=== PATIENT | male | born 1990 ===

== ENCOUNTER 2017-06-05 13:34 | Emergency (ER) | payer OTHER ==
[2017-06-05 13:43] VITALS: RESP 18; O2SAT 99
[2017-06-05 13:44] VITALS: BMI 33.9
--- NOTE | 2017-06-05 13:56 | ED PDOC ---
HPI: General Adult Time Seen by Provider: 06/05/17 13:41 Chief Complaint (Nursing): Trauma Chief Complaint (Provider): Trauma History Per: Patient History/Exam Limitations: no limitations Onset/Duration Of Symptoms: Mins Current Symptoms Are (Timing): Still Present Additional Complaint(s): 26 y/o male presents to the emergency department with a complaint of a headache and momentary loss of consciousness after being obstructed by an elbow to the bridge of his nose and head by another playing trying to catch the same ball while playing baseball prior to arrival. Reports he had full recollection of events. Denies any other injuries. Past Medical History Reviewed: Historical Data, Nursing Documentation, Vital Signs Vital Signs: Last Vital Signs Temp 98.2 F 06/05/17 13:39 Pulse 105 H 06/05/17 13:39 Resp 18 06/05/17 13:39 BP 138/97 H 06/05/17 13:39 Pulse Ox 99 06/05/17 16:02 - Medical History PMH: No Chronic Diseases - Surgical History Surgical History: No Surg Hx - Family History Family History: States: Unknown Family Hx - Social History Current smoker - smoking cessation education provided: No Alcohol: Social Drugs: Denies - Home Medications Home Medications: Ambulatory Orders Medication Instructions Recorded Naproxen [Naprosyn] 500 mg PO Q12H #20 tab 06/05/17 - Allergies Allergies/Adverse Reactions: Allergies Allergy/AdvReac Type Severity Reaction Status Date / Time seasonal Allergy CONGESTION Uncoded 06/05/17 13:38 Review of Systems ROS Statement: Except As Marked, All Systems Reviewed And Found Negative Constitutional: Positive for: Other (Loss of consciousness) ENT: Positive for: Nose Pain Neurological: Positive for: Headache Physical Exam - Reviewed Nursing Documentation Reviewed: Yes Vital Signs Reviewed: Yes - Physical Exam Appears: Positive for: Non-toxic, No Acute Distress Head Exam: Positive for: ATRAUMATIC, NORMAL INSPECTION (Mild soft tissue swelling to the bridge of the nose), NORMOCEPHALIC Skin: Positive for: Normal Color, Warm, Dry Eye Exam: Positive for: Normal appearance, EOMI, PERRL Neck: Positive for: Normal, Painless ROM, Supple Neurologic/Psych: Positive for: Alert, Oriented (x3). Negative for: Motor/ Sensory Deficits - ECG O2 Sat by Pulse Oximetry: 99 (RA) Pulse Ox Interpretation: Normal Medical Decision Making Medical Decision Making: Time: 13:48 Initial impression: Headache status post injury while playing baseball Initial plan: --Head CT --Reevaluation Time: 14:42 --Motrin [address] HEAD FINDINGS HEMORRHAGE: No acute parenchymal, subarachnoid or extra-axial hemorrhage. BRAIN: No mass effect or edema. No atrophy or chronic microvascular ischemic changes. VENTRICLES: Unremarkable. No hydrocephalus. CALVARIUM: There are no acute calvarial fracture seen. PARANASAL SINUSES: Mild mucosal thickening seen within the ethmoid air complex all. MASTOID AIR CELLS: Unremarkable as visualized. No inflammatory changes. OTHER FINDINGS: None. IMPRESSION: No acute intracranial hemorrhage. Scribe Attestation: Documented by Tamanna Claudio, acting as a scribe for Oracio Kearney MD. Provider Scribe Attestation: All medical record entries made by the Scribe were at my direction and personally dictated by me. I have reviewed the chart and agree that the record accurately reflects my personal performance of the history, physical exam, medical decision making, and the department course for this patient. I have also personally directed, reviewed, and agree with the discharge instructions and disposition. Disposition - Clinical Impression Clinical Impression: Head injury - Patient ED Disposition Is Patient to be Admitted: No - Disposition Referrals: Elmer Eaton MD [Staff Provider] - Disposition: Routine/Home Disposition Time: 16:04 Condition: FAIR Prescriptions: Naproxen [Naprosyn] 500 mg PO Q12H #20 tab Instructions: Head Injury (ED), Concussion (ED) Forms: [email or web address] (Al[place]ian)
--- NOTE | 2017-06-05 15:53 | CT ---
PROCEDURE: CT HEAD WITHOUT CONTRAST. HISTORY: trauma COMPARISON: None available. TECHNIQUE: Axial computed tomography images were obtained through the head/brain without intravenous contrast. Radiation dose: Total exam DLP = 1332.18 mGy-cm. This CT exam was performed using one or more of the following dose reduction techniques: Automated exposure control, adjustment of the mA and/or kV according to patient size, and/or use of iterative reconstruction technique. FINDINGS: HEMORRHAGE: No acute parenchymal, subarachnoid or extra-axial hemorrhage. BRAIN: No mass effect or edema. No atrophy or chronic microvascular ischemic changes. VENTRICLES: Unremarkable. No hydrocephalus. CALVARIUM: There are no acute calvarial fracture seen. PARANASAL SINUSES: Mild mucosal thickening seen within the ethmoid air complex all. MASTOID AIR CELLS: Unremarkable as visualized. No inflammatory changes. OTHER FINDINGS: None. IMPRESSION: No acute intracranial hemorrhage.
[2017-06-05 16:26] VITALS: BP 141/82; PULSE 82; TEMP 97.8
== END 2017-06-05 16:28 | disposition home or self-care (01) ==
LOC: H.ER 13:34
DX: S06.9X9A Unspecified intracranial injury with loss of consciousness of unspecified duration, initial encounter (principal); W50.0XXA Accidental hit or strike by another person, initial encounter; Y93.64 Activity, baseball; Y92.39 Other specified sports and athletic area as the place of occurrence of the external cause